=== PATIENT | female | born 1995 | race Caucasian/White ===

== ENCOUNTER → 2019-11-28 15:32 | Observation (INO) | END | disposition home or self-care (01) | LOC: 1NENULAB | PROVIDERS: ADMIT Obstetrics & Gynecology; ATTEND Obstetrics & Gynecology ==

== ENCOUNTER 2019-12-01 14:43 | Inpatient (IN) ==
[~2019-12-01 14:43] MED LIST: *HR* FentaNYL (PF) 100 MCG/2 ML VIAL IVP PRN; Azithromycin 500 MG in 0.9 % Sodium Chloride 250 ML IVPB ONE; EPHEDrine 50 MG/ML VIAL IVP PRN; Famotidine 20 MG/2 ML VIAL IVP PRN; Lidocaine 1% 20 ML MDV ID PRN; Metoclopramide 10 MG/2 ML VIAL IVP PRN; Naloxone 0.4 MG/ML INJ IVP PRN; Ondansetron 4 MG/2 ML VIAL IVP PRN
[2019-12-01] MEDS ORDERED: Epidural Premix (fent/bupiv) 110 ML EP SCH (14:45)
[2019-12-01] MEDS ORDERED: Ringers Solution, Lactated 1,000 ML IVC SCH (14:45)
[2019-12-01 15:26] LABS: Basophils % 0.3 %; Eosinophils % 0.4 %; Hematocrit 43.3 % (35.3-44.9); Hemoglobin 14.5 g/dL (11.5-15.4); Immature Granulocytes % 1.5 % (0-4); Lymphocytes # 1.9 K/mcL (0.6-4.6); Lymphocytes % 16.8 %; Mean Corpuscular HGB Conc 33.5 g/dL (31.6-35.5); Mean Corpuscular Hemoglobin 30.5 pg (28.0-33.3); Mean Platelet Volume 10.7 fL (9.4-12.4); Monocytes # 0.6 K/mcL (0.0-1.3); Monocytes % 4.9 %; Neutrophils # 8.6 K/mcL (1.6-8.9); Platelet Count 190 K/mcL (140-400); Red Blood Count 4.76 M/mcL (3.82-4.97); Red Cell Distribution Width 12.6 % (11.5-14.5); Segmented Neutrophils % 76.1 %; White Blood Count 11.2 K/mcL (4.3-11.1)
[2019-12-01 15:27] LABS: Amphetamine Screen,Urine Negative ng/mL (Cutoff=1000); Barbiturate Screen,Urine Negative ng/mL (Cutoff=200); Benzodiazepines Screen,Urine Negative ng/mL (Cutoff=200); Cannabinoid Screen,Urine Negative ng/mL (Cutoff = 50); Cocaine Screen,Urine Negative ng/mL (Cutoff= 300); Opiate Screen,Urine Negative ng/mL (Cutoff=300); Phencyclidine Screen,Urine Negative ng/mL (Cutoff=25)
[2019-12-01] MEDS ORDERED: *HR* FentaNYL (PF) 100 MCG/2 ML VIAL ONE (17:21)
[2019-12-01] MEDS ORDERED: Lidocaine/EPI 1:200k 2% PF 20 ML VIAL ONE (17:21)
[2019-12-01] MEDS ORDERED: Ropivacaine/PF 0.2% 20 ML VIAL ONE (17:21)
[2019-12-01] MEDS ORDERED: Lanolin 7 G OINT...G. TP PRN (22:59)
[2019-12-01] MEDS ORDERED: Oxytocin 20 units/ LR 1000 mL 20 UNIT/1,000 ML BAG IVC SCH (22:59)
[2019-12-01] MEDS ORDERED: Benzocaine/Menthol 56 GM AEROSOL SPRAY TP PRN (22:59)
[2019-12-01] MEDS: Ibuprofen 600 MG TABLET PO PRN (23:42)
[2019-12-02] MEDS: Ibuprofen 600 MG TABLET PO PRN ×3 (06:14→19:51)
[2019-12-02] MEDS ORDERED: Prenatal Vit/FA 1 EACH TABLET PO SCH (09:00)
[2019-12-02] MEDS: Acetaminophen 325 MG TABLET PO PRN ×2 (09:46→19:51)
[2019-12-02 17:27] VITALS: BP 112/70
== END 2019-12-02 23:40 | disposition home or self-care (01) | DRG 560 ==
LOC: 1NENULAB → UNDODISIN 19:35 → 1NENUOBS 22:55
PROVIDERS: ADMIT Obstetrics & Gynecology; ATTEND Obstetrics & Gynecology

== ENCOUNTER 2021-11-13 13:30 | Inpatient (IN) ==
[~2021-11-13 13:30] MED LIST changes: -*HR* FentaNYL (PF) 100 MCG/2 ML VIAL IVP PRN; +*HR* Nalbuphine 10 MG/ML AMPUL IV PRN; -Azithromycin 500 MG in 0.9 % Sodium Chloride 250 ML IVPB ONE; +Azithromycin 500 MG in 0.9 % Sodium Chloride 250 ML IVPB PRN; -EPHEDrine 50 MG/ML VIAL IVP PRN; -Lidocaine 1% 20 ML MDV ID PRN; +Ringers Solution, Lactated 1,000 ML IVC SCH
[2021-11-13] MEDS ORDERED: EPHEDrine 50 MG/ML VIAL IVP PRN (13:42)
[2021-11-13] MEDS ORDERED: Epidural Premix (fent/bupiv) 110 ML EP SCH (13:45)
[2021-11-13 13:56] LABS: Basophils # 0.1 K/mcL (0.0-0.2); Basophils % 0.4 %; Eosinophils % 0.3 %; Hematocrit 41.9 % (35.3-44.9); Hemoglobin 14.1 g/dL (11.5-15.4); Immature Granulocytes % 1.5 % (0-4); Lymphocytes % 14.4 %; Mean Corpuscular HGB Conc 33.7 g/dL (31.6-35.5); Mean Corpuscular Hemoglobin 30.6 pg (28.0-33.3); Mean Corpuscular Volume 90.9 fL (83.0-100.0); Mean Platelet Volume 10.4 fL (9.4-12.4); Monocytes # 0.6 K/mcL (0.0-1.3); Monocytes % 4.3 %; Neutrophils # 10.7 K/mcL (1.6-8.9); Platelet Count 173 K/mcL (140-400); Red Blood Count 4.61 M/mcL (3.82-4.97); Red Cell Distribution Width 13.7 % (11.5-14.5); Segmented Neutrophils % 79.1 %; White Blood Count 13.6 K/mcL (4.3-11.1)
[2021-11-13 14:25] LABS: Amphetamine Screen,Urine Negative ng/mL (Cutoff=1000); Barbiturate Screen,Urine Negative ng/mL (Cutoff=200); Benzodiazepines Screen,Urine Negative ng/mL (Cutoff=200); Cannabinoid Screen,Urine Negative ng/mL (Cutoff = 50); Cocaine Screen,Urine Negative ng/mL (Cutoff= 300); Opiate Screen,Urine Negative ng/mL (Cutoff=300); Phencyclidine Screen,Urine Negative ng/mL (Cutoff=25)
[2021-11-13] MEDS ORDERED: Oxytocin 30 UNIT/503 ML BAG IVC ONE (14:44)
[2021-11-13] MEDS ORDERED: Ibuprofen 600 MG TABLET PO ONE (15:21)
[2021-11-13] MEDS ORDERED: Oxytocin 30 UNIT/503 ML BAG IVC SCH (17:27)
[2021-11-13] MEDS ORDERED: Lanolin 7 G OINT...G. TP PRN (17:27)
[2021-11-13] MEDS ORDERED: Benzocaine/Menthol 56 GM AEROSOL SPRAY TP PRN (17:27)
[2021-11-13] MEDS ORDERED: Ondansetron ODT 4 MG TAB.RAPDIS SL PRN (17:27)
[2021-11-13] MEDS: Acetaminophen 325 MG TABLET PO SCH (21:27)
[2021-11-13] MEDS: Ibuprofen 600 MG TABLET PO SCH (23:42)
[2021-11-14 06:33] VITALS: BP 111/70; PULSE 79; TEMP 98.5; O2SAT 99
[2021-11-14] MEDS: Acetaminophen 325 MG TABLET PO SCH ×3 (06:43→11:57)
[2021-11-14] MEDS: Ibuprofen 600 MG TABLET PO SCH ×3 (06:44→15:50)
[2021-11-14] MEDS ORDERED: Prenatal Vit/FA 1 EACH TABLET PO SCH (09:00)
== END 2021-11-14 16:30 | disposition home or self-care (01) | DRG 807 ==
LOC: 1NENULAB → 1NENUOBS 16:23
PROVIDERS: ADMIT Registered Nurse; ATTEND Registered Nurse